=== PATIENT | female | born 1955 | race Caucasian/White ===

== ENCOUNTER 2019-09-15 15:07 | Day surgery (SDC) | payer BC ==
[~2019-09-15] VITALS: Ht 157.5 cm; Wt 75.3 kg
[2019-09-15] MEDS ORDERED: SYNT75TA PO (15:19)
[2019-09-15] MEDS ORDERED: MORPHINE 2 MG/ML 1ML VIAL (J2270) IV ONE (16:00)
[2019-09-15] MEDS ORDERED: NS 1,000 ML IV ONE (16:00)
[2019-09-15] MEDS ORDERED: PIPERACILLIN/TAZOBACTAM SOD 3.375 GM in D5W MINI-BAG PLUS 50 ML IV ONE (16:15)
[2019-09-15] MEDS ORDERED: BUPIVACAINE/EPIN 0.25% 30 ML VIAL XX ONE (18:57)
[2019-09-15] MEDS ORDERED: KETOROLAC 30 MG/ML VIAL (J1885) IV PRN (19:00)
[2019-09-15] MEDS ORDERED: NORCO, ANEXSIA 5/325MG TABLET (HYDROcodone/ACETAMINOPHEN) PO PRN (19:00)
[2019-09-15] MEDS ORDERED: ONDANSETRON 4MG/2ML VIAL (J2405) IV PRN ×2 (19:00→20:00)
[2019-09-15] MEDS ORDERED: MORPHINE 4 MG/ML 1ML VIAL/SYRINGE (J2270) IV PRN (19:00)
[2019-09-15] MEDS ORDERED: ONDANSETRON 4MG/2ML VIAL (J2405) As Ordered ONE (19:29)
[2019-09-15] MEDS ORDERED: LR 1,000 ML IV SCH (20:00)
[2019-09-15] MEDS ORDERED: fentaNYL 100 MCG/2 ML INJECTION (J3010) IV PRN (20:00)
[2019-09-15] MEDS ORDERED: HYDROMORPHONE HCL 0.5 MG/ 0.5 ML SYRINGE (J1170 PER 1) IV PRN (20:00)
[2019-09-15] MEDS ORDERED: PERCOCET 5MG/325MG TAB PO PRN (20:00)
[2019-09-15 20:01] VITALS: BP 118/80
[2019-09-15] MEDS: NS 1,000 ML IV SCH (20:16)
[2019-09-15 20:30] VITALS: BP 102/56
[2019-09-15 21:30] VITALS: BP 103/60
[2019-09-15] MEDS: IPRATROPIUM 0.5MG/ALBUTEROL 2.5MG INH SOL UD 3ML (DUONEB)(J7620) NEB SCH (21:55)
[2019-09-15 22:30] VITALS: BP 106/72
[2019-09-15] MEDS: PIPERACILLIN/TAZOBACTAM SOD 3.375 GM in D5W MINI-BAG PLUS 50 ML IV SCH (23:03)
[2019-09-15 23:30] VITALS: BP 104/58
[2019-09-16 00:30] VITALS: BP 150/60
[2019-09-16 04:30] VITALS: BP 102/62
[2019-09-16] MEDS: NS 1,000 ML IV SCH (05:00)
[2019-09-16] MEDS: PIPERACILLIN/TAZOBACTAM SOD 3.375 GM in D5W MINI-BAG PLUS 50 ML IV SCH ×2 (05:01→10:13)
[2019-09-16] MEDS ORDERED: FLUBLOK(EGG FREE)(QUAD)INFLUENZA VACC 0.5ML SYRINGE (90682)18YRS&OLDER IM ONE (09:00)
[2019-09-16 10:00] VITALS: BP 116/76
[2019-09-16] MEDS: IPRATROPIUM 0.5MG/ALBUTEROL 2.5MG INH SOL UD 3ML (DUONEB)(J7620) NEB SCH (10:57)
[2019-09-16 14:00] VITALS: BP 101/56
== END 2019-09-16 14:30 | disposition home or self-care (01) ==
LOC: M ED 15:07 → M SDC 15:08 → M ED 17:12 → M ED INP 18:55 → UNDOADMIN 18:55 → M MSPAV 20:01 → M ED INP 20:01 → M MSPAV 20:01 → M SDC 09-16 14:30 → UNDODISIN 09-16 14:30
PROVIDERS: ATTEND Surgery
DX: K35.890 Other acute appendicitis without perforation or gangrene (principal); E03.9 Hypothyroidism, unspecified; Z79.899 Other long term (current) drug therapy
CPT/HCPCS: 44970; 88304; 90471; 90682; 94640; 96361; 96365; 96366; 96375; 99284; J2270; J2405; J2543

== ENCOUNTER → 2019-09-15 | Outpatient (REF) | payer BC ==
[~2019-09-15] MED LIST: SYNT75TA PO
== END ==
LOC: M LAB REF 16:27
PROVIDERS: ATTEND Physician Assistant
DX: R10.813 Right lower quadrant abdominal tenderness (principal)

== ENCOUNTER → 2019-09-15 | Outpatient (CLI) | payer BC ==
[~2019-09-15] MED LIST changes: +ACETAMINOPHEN 1000MG 100ML IV BTL (OFIRMEV) (J0131 PER 10MG) As Ordered ONE; +BUPIVACAINE/EPIN 0.25% 30 ML VIAL As Ordered ONE; +GASTROGRAFIN SOLUTION 30ML (Q9963) As Ordered ONE; +ISOVUE-370 76% 100ML VIAL (Q9967) As Ordered ONE; +LIDOCAINE 2% INJ 100 MG/5 ML SDV (FOR ANES.) As Ordered ONE; +MIDAZOLAM INJ 2 MG/2 ML VIAL (J2250) As Ordered ONE; +ONDANSETRON 4MG/2ML VIAL (J2405) As Ordered ONE; +PROPOFOL 200 MG/20 ML VIAL As Ordered ONE; +ROCURONIUM BROMIDE 50 MG/5 ML VIAL As Ordered ONE; +SUCCINYLCHOLINE 100 MG/5 ML SYRINGE (J0330) As Ordered ONE; +dexameTHASONE 4 MG/ML 1ML VIAL (J1100) As Ordered ONE; +fentaNYL 100 MCG/2 ML INJECTION (J3010) As Ordered ONE
[2019-09-15 12:37] LABS: BASO % 0.2 % (0.0-1.0); EOS # 0.1 10^3/uL (0.0-0.5); EOS % 0.8 % (0.0-3.0); HEMATOCRIT 42.3 % (36.0-47.0); LYMPH # 1.9 10^3/uL (1.5-5.0); MEAN CORPUSCULAR HEMOGLOBIN 29.7 pg (27.0-33.0); MEAN CORPUSCULAR HGB CONC 33.1 g/dl (32.0-36.5); MEAN CORPUSCULAR VOLUME 89.6 fl (80.0-96.0); MONO % 8.3 % (0.0-5.0); NEUTROPHILS # 8.7 10^3/uL (1.5-8.5); NEUTROPHILS % 74.3 % (36.0-66.0); PLATELET COUNT, AUTOMATED 208 10^3/uL (150-450); RED BLOOD COUNT 4.72 10^6/uL (4.00-5.40); WHITE BLOOD COUNT 11.7 10^3/uL (4.0-10.0)
[2019-09-15 13:03] LABS: ALBUMIN 3.5 GM/DL (3.2-5.2); BILIRUBIN,TOTAL 0.3 MG/DL (0.2-1.0); CALCIUM LEVEL 8.8 MG/DL (8.8-10.2); CREATININE FOR GFR 1.47 MG/DL (0.55-1.30); GLOMERULAR FILTRATION RATE 38.2 (>45); POTASSIUM SERUM 4.3 MEQ/L (3.5-5.1); TOTAL PROTEIN 6.6 GM/DL (6.4-8.2)
--- NOTE | 2019-09-15 14:43 | REP ---
CT ABDOMEN AND PELVIS WITH IV AND ORAL CONTRAST: HISTORY: Abdominal tenderness. 3 days of abdominal pain. Right lower and left lower quadrant. CT CONTRAST DOSE: 100 mL of intravenous Isovue [address] FINDINGS: Digital preliminary utility technician radiograph demonstrates an unremarkable bowel gas pattern. The lung bases are clear on axial CT images. The liver and the spleen are normal in size homogeneous in texture. No abnormality is noted in the gallbladder or in the pancreas. No adrenal lesion is seen. There is a cyst in the central right kidney measuring 3.5 cm in greatest diameter. No hydronephrosis is seen. There is a small cyst in the upper pole left kidney which measures 1.3 cm. No retroperitoneal mass or adenopathy is observed. Small and large intestinal bowel loops are normal in the upper abdomen. There is no evidence of free intraperitoneal air. There is downey colonic diverticulosis without CT evidence of diverticulitis. An elongate fibroid uterus is observed. No ovarian abnormality is appreciated on either side. The appendix is abnormal with appendiceal dilation, enhancing thickened appendiceal wall, and luminal appendiceal fluid. There is periappendiceal fat streaking. The findings are compatible with acute appendicitis. No abdominal wall defect is seen. Bone window settings show no bony destructive lesion. IMPRESSION: CT findings consistent with acute appendicitis. No abscess or free air. The appendix is dilated, thick-walled, and there is moderate periappendiceal inflammation. Also noted is downey colonic diverticulosis. Mild fibroid change in the uterus. Simple renal cysts. Electronically Signed by Antoni Worthington MD 09/15/2019 05:45 P
== END ==
LOC: M RAD 11:53
PROVIDERS: ATTEND Physician Assistant
DX: R10.813 Right lower quadrant abdominal tenderness (principal); R10.814 Left lower quadrant abdominal tenderness; N28.1 Cyst of kidney, acquired; D25.9 Leiomyoma of uterus, unspecified; K57.90 Diverticulosis of intestine, part unspecified, without perforation or abscess without bleeding
CPT/HCPCS: 36415; 74177; 80053; 83690; 85025; J0131; J0330; J1100; J2250; J2405; J3010; Q9963; Q9967